=== PATIENT | female | born 1995 | race African-American/Black ===

== ENCOUNTER 2019-10-02 13:50 | Emergency (ER) | payer OTHER ==
[~2019-10-02] VITALS: Ht 162.6 cm; Wt 47.6 kg
[2019-10-02 13:56] VITALS: Ht 162.6 cm; Wt 47.6 kg
[2019-10-02 16:11] VITALS: BP 125/69
== END 2019-10-02 16:11 | disposition home or self-care (01) ==
LOC: ED 13:50
DX: D24.2 Benign neoplasm of left breast (principal); H92.02 Otalgia, left ear; Z98.890 Other specified postprocedural states
CPT/HCPCS: 76641

== ENCOUNTER 2019-11-24 12:23 | Emergency (ER) | payer OTHER ==
[~2019-11-24] VITALS: Ht 162.6 cm; Wt 46.3 kg
[2019-11-24 12:42] VITALS: Ht 162.6 cm; Wt 46.3 kg
[2019-11-24 14:08] LABS: CALCIUM 9.4 mg/dL (8.5-10.1); CARBON DIOXIDE 27.8 mmol/L (21-32); CHLORIDE SERUM 102 mmol/L (98-107); CREATININE SERUM 0.6 mg/dL (0.6-1.0); GFR1 > 60 mL/min; GLUCOSE SERUM 79 mg/dL (74-106); SODIUM SERUM 136 mmol/L (136-145)
[2019-11-24 14:13] LABS: ALBUMIN 4.5 g/dL (3.4-5.0); ALKALINE PHOSPHATASE 51 U/L (46-116); ALT/SGPT 24 U/L (14-59); AST/SGOT 22 U/L (15-37); BILIRUBIN TOTAL 0.3 mg/dL (0.20-1.00)
[2019-11-24 14:18] LABS: BASOPHIL % 0.9 % (0-2); PLATELET COUNT 336 x10^3mcL (130-400); RED CELL DISTRIBUTION WIDTH 16.7 % (11.5-14.5)
[2019-11-24 17:50] VITALS: BP 100/59
== END 2019-11-24 17:51 | disposition home or self-care (01) ==
LOC: ED 12:23
PROVIDERS: Student in an Organized Health Care Education/Training Program
DX: N83.201 Unspecified ovarian cyst, right side (principal)
CPT/HCPCS: 36415; J1885; Q9967

== ENCOUNTER 2020-08-06 17:19 | Emergency (ER) | payer OTHER ==
[~2020-08-06] VITALS: Ht 162.6 cm; Wt 45.8 kg
[2020-08-06 17:38] VITALS: Ht 162.6 cm; Wt 45.8 kg
[2020-08-06 18:05] LABS: microscopic required? NO
[2020-08-06 18:13] LABS: BASOPHIL % 0.9 % (0-2); PLATELET COUNT 283 x10^3mcL (130-400)
[2020-08-06 18:14] LABS: RED CELL DISTRIBUTION WIDTH 14.9 % (11.5-14.5)
[2020-08-06 18:15] LABS: UA SPECIFIC GRAVITY 1.025 (1.005-1.035); urine erythrocyte NEGATIVE (NEGATIVE)
[2020-08-06 19:52] VITALS: BP 110/78
== END 2020-08-06 19:52 | disposition home or self-care (01) ==
LOC: ED 17:19
PROVIDERS: Emergency Medicine
DX: N83.291 Other ovarian cyst, right side (principal)
CPT/HCPCS: 87491; 87591; J1885; Q0092